=== PATIENT | female | born 2000 | race Caucasian/White ===

== ENCOUNTER 2022-04-26 15:37 | Emergency (ER) | payer OTHER ==
[~2022-04-26] VITALS: Ht 165.1 cm; Wt 97.1 kg
== END 2022-04-26 18:24 | disposition home or self-care (01) ==
LOC: ED 15:37
DX: O23.592 Infection of other part of genital tract in pregnancy, second trimester (principal); Z88.0 Allergy status to penicillin; Z98.890 Other specified postprocedural states; Z3A.21 21 weeks gestation of pregnancy